=== PATIENT | male | born 1940 | race Caucasian/White ===

== ENCOUNTER 2019-02-01 07:36 | Outpatient (CLI) | payer MEDICARE, OTHER ==
--- NOTE | 2019-02-01 09:15 | MRI ---
FMR of the lumbar spine without contrast INDICATION: Bilateral leg weakness with history of low back surgery 2016 COMPARISON: Prior MRI lumbar spine with and without contrast dated January 28, 2017 FINDINGS: Since the comparison examination there is worsening type type I Modic endplate degenerative changes a t L3-4. The conus is seen to terminate at approximately L1. The visualized paravertebral and retroper itoneal soft tissues appear within normal limits. No acute fracture is evident. There are stable post surgical changes of the left hemilaminectomies at L2-3 and L3-4. At the L5-S1 level, there is an asymmetric to the left disc osteophyte complex with severe right and moderate left facet joint degenerative change. There is a superimposed large left paracentral protrus ion inducing severe narrowing of the left lateral recess with impingement of the traversing left S1 n erve root. This is stable to the prior exam. The disc osteophyte complex in addition to the facet hyp ertrophy and loss of disc space height and produces moderate right and mild left neural foraminal sabiha rowing which is stable. At L4-5, there is a broad-based disc bulge with a superimposed right paracentral disc protrusion. The re is advanced right and moderate left facet joint degenerative change. The disc protrusion induces s evere right lateral recess narrowing with probable impingement of the traversing right L5 nerve root. The disc degenerative disease and facet osteoarthritic change at this level induces moderate right a nd [id number] left neural foraminal narrowing which is stable. The broad-based disc osteophyte complex in addition to the protrusion induces mild central canal narrowing which is stable. At L3-4, there is a broad-based disc bulge with severe right and moderate left facet joint degenerati ve changes inducing severe central canal narrowing this has worsen since the prior exam. There is sev ere left and moderate to severe right neural foraminal narrowing due to the disc osteophyte complex a nd facet hypertrophy which is stable. At L2-3, there is a broad-based disc bulge with a superimposed right paracentral protrusion. There is moderate facet joint hypertrophy. There is mild central canal narrowing. This is stable to the prior exam. The facet hypertrophy and disc bulge at this level induces moderate left and mild right neural foraminal narrowing which is stable. At L1-2, there is a broad-based disc bulge with a superimposed right paracentral cephalad extending d isc extrusion. The disc degenerative disease in addition to the facet hypertrophy induces mild to mod erate central canal narrowing which is stable. There is moderate bilateral neural foraminal narrowing due to the disc bulge and facet hypertrophy which is stable. At T12-L1, there is a broad-based disc bulge with a superimposed right paracentral protrusion. There is mild central canal narrowing with moderate right and mild left neural foraminal narrowing which is stable. IMPRESSION: Worsening multilevel severe lumbar spondylosis with worsening Modic endplate degenerative change at L3-4. There is worsening central canal narrowing at L3-4 and now severe. The multilevel neural foraminal narrowing, central canal narrowing and lateral recess narrowing detai led in the levels above are otherwise stable to the prior exam dated January 28, 2017.
== END 2019-02-01 07:37 | disposition home or self-care (01) ==
LOC: TBSIIMAG 07:36
PROVIDERS: ATTEND Internal Medicine
DX: M54.5 Low back pain (principal); M47.816 Spondylosis without myelopathy or radiculopathy, lumbar region; M48.061 Spinal stenosis, lumbar region without neurogenic claudication; M48.05 Spinal stenosis, thoracolumbar region; M48.07 Spinal stenosis, lumbosacral region; Z98.890 Other specified postprocedural states
CPT/HCPCS: 72148